=== PATIENT | female | born 1970 | race Hispanic/Latino ===

== ENCOUNTER 2017-12-20 15:47 | Emergency (ER) | payer BC, OTHER ==
[2017-12-20] MEDS ORDERED: ACETAMINOPHEN 325 MG TAB ONE (16:23)
[2017-12-20] MEDS ORDERED: MORPHINE SULFATE 4 MG/1ML SYG ONE (16:24)
[2017-12-20] MEDS ORDERED: LACTATED RINGERS 1000ML 1,000 ML IV ONE (16:24)
[2017-12-20 16:44] LABS: APPEARANCE,URINE Clear (CLEAR); BILIRUBIN,URINE Negative (NEGATIVE); COLOR,URINE Yellow (YELLOW); GLUCOSE, URINE (UA) Negative (NEGATIVE); KETONES,URINE Negative (NEGATIVE); LEUKOCYTE ESTERASE ,URINE Negative (NEGATIVE); NITRATE,URINE Negative (NEGATIVE); OCCULT BLOOD,URINE Negative (NEGATIVE); PH,URINE 5.5 (5.0-8.0); PROTEIN,URINE Negative (NEGATIVE); UROBILINOGEN,URINE 0.2 mg/dL (0.2-1.0)
[2017-12-20 16:52] LABS: HCG,QUAL RESULT NEGATIVE (NEGATIVE)
[2017-12-20 16:54] LABS: BASOPHILS % (AUTO) 0.7 % (0.0-5.0); EOSINOPHILS % (AUTO) 1.6 % (0.0-8.0); HEMATOCRIT 37.8 % (36-48); LYMPHOCYTES % (AUTO) 36.2 % (21.0-51.0); MEAN CORPUSCULAR HEMOGLOBIN 28.3 pg (27.0-33.0); MEAN CORPUSCULAR HGB CONC 33.4 g/dL (32.0-36.0); MEAN CORPUSCULAR VOLUME 84.6 fL (79-99); MONOCYTES % (AUTO) 8.3 % (3.0-13.0); NEUTROPHILS % (AUTO) 53.2 % (40.0-77.0); PLATELET COUNT (AUTO) 408 K/uL (130-400); RED BLOOD CELL COUNT(AUTO) 4.47 MIL/uL (4.00-5.50); RED CELL DISTRIBUTION WIDTH 13.2 % (11.0-15.5)
[2017-12-20] MEDS ORDERED: KETOROLAC TROMETHAMINE 15MG/ML ONE (17:22)
[2017-12-20 17:35] LABS: POTASSIUM 4.1 mmol/L (3.5-5.1)
[2017-12-20 17:37] LABS: ALBUMIN 3.8 g/dL (3.5-5.0); BILIRUBIN,TOTAL 0.2 mg/dL (0.2-1.0); CRP QUANTITATIVE 10.7 mg/L (0.00-9.0); TOTAL PROTEIN, SERUM 7.4 g/dL (6.0-8.3)
== END 2017-12-20 18:52 | disposition home or self-care (01) ==
LOC: EDH 15:47
DX: M54.5 Low back pain (principal); K57.90 Diverticulosis of intestine, part unspecified, without perforation or abscess without bleeding
CPT/HCPCS: 36415; 74176; 76856; 80053; 81003; 81025; 83690; 85025; 86140; 96361; 96374; 96375; 99285; J1885; J2270; J7120